=== PATIENT | male | born 1950 | race Two or more races ===

== ENCOUNTER 2019-12-22 02:42 | Inpatient (IN) | payer OTHER ==
[~2019-12-22] VITALS: Ht 172.7 cm; Wt 84.9 kg
[2019-12-22 04:11] LABS: Basophils # (auto) 0.1 10 ^3/uL (0-0.2); Basophils % (auto) 0.9 % (0.0-2.0); Eosinophils # (auto) 0.1 10 ^3/uL (0-0.8); Eosinophils % (auto) 0.7 % (0.0-7.0); Hematocrit 30.3 % (36.0-46.0); Hemoglobin 10.2 g/dL (12.2-16.2); Lymphocytes # (auto) 1.4 10 ^3/uL (0.4-5.4); Lymphocytes % (auto) 14.6 % (10.0-50.0); Mean Corpuscular Hgb Conc. 33.6 g/dL (32.0-36.0); Mean Corpuscular Volume 98.3 fL (80.0-100.0); Monocytes # (auto) 0.9 10 ^3/uL (0-1.3); Monocytes % (auto) 9.2 % (0.0-12.0); Neutrophils # (auto) 7.2 10 ^3/uL (1.6-8.6); Neutrophils % (auto) 74.6 % (37.0-80.0); Nucleated Red Blood Cells % 0.1 %; Platelet Count (auto) 221 10^3/uL (140-450); Red Blood Cells 3.08 10^6/uL (4.0-5.20); Red Cell Distribution Width 15.4 % (11.8-14.3); White Blood Cell 9.7 10^3/uL (4.4-10.8)
[2019-12-22] MEDS ORDERED: FUROSEMIDE 20 MG TAB PO ONE (04:30)
[2019-12-22 04:33] LABS: Albumin 2.4 g/dL (3.4-5.0); Calcium 8.7 mg/dL (8.5-10.1); Potassium 3.7 mmol/L (3.5-5.1)
[2019-12-22 04:38] LABS: BUN/Creatinine Ratio 4.5; Bilirubin, Total 0.5 mg/dL (0.2-1.0); Total Protein 7.8 g/dL (6.4-8.2)
[2019-12-22 05:03] LABS: INR 1.13 (0.9-1.15); Partial Thromboplastin Time 22.2 sec (23.0-31.2)
[2019-12-22] MEDS ORDERED: MORPHINE SULFATE 4 MG/ML SYR/VIAL ONE (05:24)
[2019-12-22] MEDS ORDERED: ONDANSETRON HCL 4 MG/2 ML VIAL ONE (05:24)
[2019-12-22] MEDS ORDERED: MORPHINE SULFATE 4 MG/ML SYR/VIAL IM ONE (05:30)
[2019-12-22] MEDS ORDERED: ONDANSETRON HCL 4 MG/2 ML VIAL IM ONE (05:30)
[2019-12-22] MEDS ORDERED: IPRATROPIUM BROM 0.5 MG/2.5ML INH SOL NEB ONE (05:45)
[2019-12-22] MEDS ORDERED: ALBUTEROL SULF 2.5 MG/0.5ML(0.5%) NEB SOLN NEB ONE (05:45)
[2019-12-22] MEDS ORDERED: IOHEXOL 350 MG/ML 100ML IJ ONE (06:05)
[2019-12-22] MEDS ORDERED: ACETAMINOPHEN 325 MG TAB PO PRN (06:45)
[2019-12-22] MEDS ORDERED: DOCUSATE SOD 100 MG CAP PO PRN (06:45)
[2019-12-22] MEDS ORDERED: IPRATROPIUM BROM 0.5 MG/2.5ML INH SOL NEB PRN (06:45)
[2019-12-22] MEDS ORDERED: ALBUTEROL SULF 2.5 MG/0.5ML(0.5%) NEB SOLN NEB PRN (06:45)
[2019-12-22] MEDS ORDERED: MORPHINE SULF INJ 2 MG/ML SYRINGE 1ML IV PRN (06:45)
[2019-12-22] MEDS ORDERED: HYDROcodone-ACET 5/325MG TAB PO PRN (06:45)
[2019-12-22] MEDS ORDERED: ONDANSETRON HCL 4 MG/2 ML VIAL IV PRN (06:45)
[2019-12-22 10:10] VITALS: BP 144/83
[2019-12-22] MEDS ORDERED: DOCU100T15 PO (10:51)
[2019-12-22] MEDS ORDERED: LISI-275 PO (10:51)
[2019-12-22] MEDS ORDERED: FERR1TAB17 PO (10:51)
[2019-12-22] MEDS ORDERED: LEVO25TA6 PO (10:51)
[2019-12-22] MEDS ORDERED: CALC667T2 PO (10:51)
[2019-12-22] MEDS ORDERED: TERA2CAP45 PO (10:51)
[2019-12-22] MEDS ORDERED: ATEN-60 PO (10:51)
[2019-12-22] MEDS ORDERED: SODI650T PO (10:51)
[2019-12-22] MEDS ORDERED: ALLO300T2 PO (10:51)
[2019-12-22] MEDS ORDERED: CINA30TA2 PO (10:51)
[2019-12-22] MEDS ORDERED: RIZA5TAB35 PO (10:51)
[2019-12-22] MEDS ORDERED: ALBUAER3 IN (10:51)
[2019-12-22] MEDS ORDERED: B-COTAB10 PO (10:51)
[2019-12-22] MEDS ORDERED: BUMETANIDE 2.5mg/10ml (0.25 mg/ml) INJ IV ONE (12:30)
[2019-12-22 13:00] VITALS: BP 138/89
[2019-12-22 16:30] VITALS: BP 133/78
[2019-12-22 22:00] VITALS: BP 100/49
[2019-12-23 05:00] VITALS: BP 129/72
[2019-12-23 08:00] VITALS: BP 126/72
[2019-12-23 09:00] VITALS: BP 126/72
[2019-12-23 12:12] VITALS: BP 120/71
[2019-12-23 12:37] VITALS: BP 118/65
== END 2019-12-23 13:50 | disposition home or self-care (01) | DRG 189 ==
LOC: EDBD 02:42 → EDSEX 02:46 → ER 02:46 → TELE 02:47 → TELE-WESTW 11:52
PROVIDERS: ADMIT Hospitalist; ATTEND Internal Medicine Pulmonary Disease
PROC: 5A1D70Z Performance of Urinary Filtration, Intermittent, Less than 6 Hours Per Day (ICD-10-PCS; principal; 2019-12-22)
PROC: 5A09357 Assistance with Respiratory Ventilation, Less than 24 Consecutive Hours, Continuous Positive Airway Pressure (ICD-10-PCS; 2019-12-22)
DX: J96.00 Acute respiratory failure, unspecified whether with hypoxia or hypercapnia (principal); N18.6 End stage renal disease; J81.1 Chronic pulmonary edema; I12.0 Hypertensive chronic kidney disease with stage 5 chronic kidney disease or end stage renal disease; J45.909 Unspecified asthma, uncomplicated; E87.70 Fluid overload, unspecified; Z99.2 Dependence on renal dialysis; Z93.3 Colostomy status; Z91.11 Patient's noncompliance with dietary regimen
CPT/HCPCS: 36415; 36600; 71045; 71275; 74176; 80053; 82805; 83605; 83880; 84484; 85025; 85379; 85610; 85730; 87040; 90935; 93005; 94640; 94660; 96372; 96374; G0378; J2405

== ENCOUNTER 2021-05-09 09:16 | Inpatient (IN) | payer OTHER ==
[~2021-05-09] VITALS: Ht 182.9 cm; Wt 90.1 kg
[~2021-05-09 09:16] MED LIST: ALBUAER3 IN; ALLO300T2 PO; ATEN-60 PO; B-COTAB10 PO; CALC10TA PO; CINA30TA2 PO; DOCU100T15 PO; FERR1TAB17 PO; LEVO25TA6 PO; LISI-275 PO; RIZA5TAB35 PO; SODI650T PO; TERA2CAP45 PO
[2021-05-09] MEDS ORDERED: SODIUM CHLORIDE 0.9% 500 ML IV ONE (10:30)
[2021-05-09] MEDS ORDERED: ACETAMINOPHEN 325 MG TAB PO ONE (10:30)
[2021-05-09] MEDS ORDERED: VANCOMYCIN PER PHARMACY 0 MG IV SCH (10:30)
[2021-05-09] MEDS ORDERED: PHENYLEPHRINE IV 250 ML IV ONE (10:38)
[2021-05-09] MEDS: PHENYLEPHRINE IV 250 ML IV SCH ×2 (10:52→13:35)
[2021-05-09] MEDS ORDERED: VANCOMYCIN 1GM/250ML 250 ML IV ONE (11:00)
[2021-05-09 11:14] LABS: Basophils # (auto) 0 10 ^3/uL (0-0.2); Basophils % (auto) 0.2 % (0.0-2.0); Eosinophils # (auto) 0 10 ^3/uL (0-0.8); Eosinophils % (auto) 0.1 % (0.0-7.0); Hematocrit 30.9 % (41.0-53.0); Hemoglobin 10.5 g/dL (13.5-17.5); Lymphocytes # (auto) 0.3 10 ^3/uL (0.4-5.4); Lymphocytes % (auto) 4.4 % (10.0-50.0); Mean Corpuscular Hemoglobin 33.4 pg (28.0-32.0); Mean Corpuscular Hgb Conc. 33.8 g/dL (32.0-36.0); Mean Corpuscular Volume 98.8 fL (80.0-100.0); Monocytes # (auto) 0.3 10 ^3/uL (0-1.3); Monocytes % (auto) 4.3 % (0.0-12.0); Neutrophils # (auto) 6.5 10 ^3/uL (1.6-8.6); Nucleated Red Blood Cells % 0.1 %; Red Blood Cells 3.13 10^6/uL (4.5-5.90); Red Cell Distribution Width 14.5 % (11.8-14.3); White Blood Cell 7.2 10^3/uL (4.4-10.8)
[2021-05-09 11:28] LABS: Albumin 2.3 g/dL (3.4-5.0); Anion Gap 13 (5-15); Blood Urea Nitrogen 79 mg/dL (7-18); Calcium 9.6 mg/dL (8.5-10.1); Carbon Dioxide 26 mmol/L (21-32); Chloride 92 mmol/L (98-107); Glucose 102 mg/dL (74-106); Potassium 4.6 mmol/L (3.5-5.1); Sodium 131 mmol/L (136-145)
[2021-05-09 11:35] LABS: Alanine Aminotransferase 74 U/L (16-61); Alkaline Phosphatase 235 U/L (45-117); Aspartate Aminotransferase 60 U/L (15-37); BUN/Creatinine Ratio 7.7; Bilirubin, Total 0.8 mg/dL (0.2-1.0); Blood Alcohol < 3.0 mg/dL (0-5); GFR African American 6 mL/min; GFR Non-African American 5 mL/min; Total Protein 8.2 g/dL (6.4-8.2)
[2021-05-09] MEDS ORDERED: NOREPINEPHRINE 8 MG/250ML KIT 250 ML IV ONE (13:24)
[2021-05-09] MEDS: NOREPINEPHRINE 8 MG/250ML KIT 250 ML IV SCH (13:43)
[2021-05-09] MEDS ORDERED: MORPHINE SULFATE INJECTION 2 MG/ML SYRG IV PRN (16:30)
[2021-05-09] MEDS ORDERED: NITROGLYCERIN 0.4 MG SL TAB SL PRN (16:30)
[2021-05-09] MEDS ORDERED: VANCOMYCIN HCL 125MG/5ML ORAL SOL GT ONE (19:15)
[2021-05-09] MEDS ORDERED: BUMETANIDE 2.5mg/10ml (0.25 mg/ml) INJ IV ONE (19:15)
[2021-05-09] MEDS ORDERED: hydrALAZINE HCL 20 MG/ML VL IV PRN (19:15)
[2021-05-09] MEDS ORDERED: B-COMPLEX W/ C & FOLIC ACID(NEPHROVITE TAB) PO ONE (19:15)
[2021-05-09] MEDS ORDERED: FAMOTIDINE (10MG/ML) 2ML VL IV ONE (19:15)
[2021-05-09] MEDS ORDERED: HYDROcodone-ACET 5/325MG TAB PO ONE (19:15)
[2021-05-09] MEDS ORDERED: CEFEPIME 1 GM in SODIUM CHL 0.9% 50 ML IV ONE (19:15)
[2021-05-09] MEDS ORDERED: IPRATROPIUM BROM 0.5 MG/2.5ML INH SOL NEB ONE (19:45)
[2021-05-09] MEDS: IPRATROPIUM BROM 0.5 MG/2.5ML INH SOL NEB SCH ×2 (20:30→21:59)
[2021-05-09 21:56] LABS: INR 1.34 (0.9-1.15); Partial Thromboplastin Time 32.2 sec (23.6-33.0)
[2021-05-09] MEDS: CARVEDILOL 3.125 MG TAB PO SCH (23:11)
[2021-05-09] MEDS: FLORASTOR (S. BOULARDII) 250 MG CAP PO SCH (23:14)
[2021-05-09] MEDS: ATORVASTATIN 20 MG TAB PO SCH (23:14)
[2021-05-10] MEDS: VANCOMYCIN HCL 125MG/5ML ORAL SOL GT SCH ×2 (00:19→06:11)
[2021-05-10] MEDS: IPRATROPIUM BROM 0.5 MG/2.5ML INH SOL NEB SCH ×7 (02:00→22:33)
[2021-05-10] MEDS: ONDANSETRON HCL 4 MG/2 ML VIAL IV PRN (03:22)
[2021-05-10] MEDS: MORPHINE SULFATE INJECTION 2 MG/ML SYRG IV PRN ×2 (03:53→15:59)
[2021-05-10] MEDS: PHENYLEPHRINE IV 250 ML IV SCH ×2 (04:15→14:30)
[2021-05-10] MEDS ORDERED: BUMETANIDE 2.5mg/10ml (0.25 mg/ml) INJ IV SCH (06:00)
[2021-05-10 07:53] LABS: Basophils # (auto) 0.1 10 ^3/uL (0-0.2); Basophils % (auto) 1.2 % (0.0-2.0); Eosinophils # (auto) 0.1 10 ^3/uL (0-0.8); Eosinophils % (auto) 0.6 % (0.0-7.0); Hematocrit 24.4 % (41.0-53.0); Hemoglobin 8.2 g/dL (13.5-17.5); Lymphocytes # (auto) 0.5 10 ^3/uL (0.4-5.4); Lymphocytes % (auto) 4.1 % (10.0-50.0); Mean Corpuscular Hemoglobin 32.8 pg (28.0-32.0); Mean Corpuscular Hgb Conc. 33.4 g/dL (32.0-36.0); Mean Corpuscular Volume 98.1 fL (80.0-100.0); Monocytes # (auto) 0.9 10 ^3/uL (0-1.3); Monocytes % (auto) 7.4 % (0.0-12.0); Neutrophils # (auto) 10.8 10 ^3/uL (1.6-8.6); Neutrophils % (auto) 86.7 % (37.0-80.0); Red Blood Cells 2.49 10^6/uL (4.5-5.90); Red Cell Distribution Width 14.5 % (11.8-14.3); White Blood Cell 12.4 10^3/uL (4.4-10.8)
[2021-05-10] MEDS ORDERED: FERRIC CITRATE 420 MG PO SCH (08:00)
[2021-05-10 08:07] LABS: INR 1.35 (0.9-1.15)
[2021-05-10 08:11] LABS: Phosphorus 4.7 mg/dL (2.5-4.90)
[2021-05-10] MEDS ORDERED: SODIUM CHL 0.9% 1000 ML BAG XX ONE (08:45)
[2021-05-10] MEDS: HYDROcodone-ACET 5/325MG TAB PO PRN (08:49)
[2021-05-10] MEDS: CALCIUM ACETATE 667 MG CAP PO SCH ×2 (09:07→13:19)
[2021-05-10] MEDS: LEVOTHYROXINE SODIUM 25 MCG TAB PO SCH (09:07)
[2021-05-10] MEDS ORDERED: CEFEPIME 1 GM in SODIUM CHL 0.9% 50 ML IV SCH (10:00)
[2021-05-10] MEDS ORDERED: CALCITRIOL 0.25 MCG CAP PO SCH (10:00)
[2021-05-10] MEDS: CINACALCET HYDROCHLORIDE 30 MG TAB PO SCH ×2 (10:00→13:19)
[2021-05-10] MEDS: B-COMPLEX W/ C & FOLIC ACID(NEPHROVITE TAB) PO SCH (10:25)
[2021-05-10] MEDS: FAMOTIDINE (10MG/ML) 2ML VL IV SCH (10:25)
[2021-05-10] MEDS: FLORASTOR (S. BOULARDII) 250 MG CAP PO SCH ×2 (10:27→22:00)
[2021-05-10] MEDS: ENOXAPARIN SOD 30 MG/0.3 ML SYRINGE SC SCH (10:42)
[2021-05-10] MEDS: CARVEDILOL 3.125 MG TAB PO SCH (10:42)
[2021-05-10] MEDS: ALLOPURINOL 100 MG TAB PO SCH (10:43)
[2021-05-10] MEDS: NOREPINEPHRINE 8 MG/250ML KIT 250 ML IV SCH (12:59)
[2021-05-10] MEDS: CEFEPIME 1 GM in SODIUM CHL 0.9% 50 ML IV SCH (15:38)
[2021-05-10] MEDS ORDERED: ALLO100T PO (17:00)
[2021-05-10] MEDS ORDERED: CARV3.1240 PO (17:07)
[2021-05-10] MEDS ORDERED: EPOETIN ALFA-EPBX 4,000 UNIT/ML VIAL SC ONE (21:00)
[2021-05-10 22:00] VITALS: BP 101/61
[2021-05-10] MEDS: ATORVASTATIN 20 MG TAB PO SCH (22:00)
[2021-05-11] MEDS: IPRATROPIUM BROM 0.5 MG/2.5ML INH SOL NEB SCH ×3 (01:33→10:54)
[2021-05-11 05:00] VITALS: BP 122/72
[2021-05-11] MEDS: LEVOTHYROXINE SODIUM 25 MCG TAB PO SCH (07:00)
[2021-05-11 07:57] LABS: Basophils # (auto) 0.1 10 ^3/uL (0-0.2); Basophils % (auto) 0.9 % (0.0-2.0); Eosinophils # (auto) 0.1 10 ^3/uL (0-0.8); Eosinophils % (auto) 1.1 % (0.0-7.0); Hematocrit 24.7 % (41.0-53.0); Hemoglobin 8.4 g/dL (13.5-17.5); Lymphocytes # (auto) 0.6 10 ^3/uL (0.4-5.4); Lymphocytes % (auto) 8.1 % (10.0-50.0); Mean Corpuscular Hemoglobin 33.2 pg (28.0-32.0); Mean Corpuscular Volume 97.6 fL (80.0-100.0); Monocytes # (auto) 0.4 10 ^3/uL (0-1.3); Monocytes % (auto) 5.3 % (0.0-12.0); Neutrophils # (auto) 5.7 10 ^3/uL (1.6-8.6); Neutrophils % (auto) 84.6 % (37.0-80.0); Red Blood Cells 2.53 10^6/uL (4.5-5.90); Red Cell Distribution Width 14.6 % (11.8-14.3); White Blood Cell 6.8 10^3/uL (4.4-10.8)
[2021-05-11 08:25] LABS: BUN/Creatinine Ratio 7.8; Calcium 8.8 mg/dL (8.5-10.1); Potassium 4.4 mmol/L (3.5-5.1)
[2021-05-11] MEDS: FLORASTOR (S. BOULARDII) 250 MG CAP PO SCH ×2 (08:47→22:06)
[2021-05-11] MEDS: CALCIUM ACETATE 667 MG CAP PO SCH ×3 (08:47→17:53)
[2021-05-11] MEDS: B-COMPLEX W/ C & FOLIC ACID(NEPHROVITE TAB) PO SCH (08:48)
[2021-05-11] MEDS: ENOXAPARIN SOD 30 MG/0.3 ML SYRINGE SC SCH (08:48)
[2021-05-11] MEDS: ALLOPURINOL 100 MG TAB PO SCH (08:48)
[2021-05-11] MEDS: HYDROcodone-ACET 5/325MG TAB PO PRN (08:55)
[2021-05-11] MEDS: CINACALCET HYDROCHLORIDE 30 MG TAB PO SCH (09:38)
[2021-05-11 13:00] VITALS: BP 100/65
[2021-05-11] MEDS: CEFEPIME 1 GM in SODIUM CHL 0.9% 50 ML IV SCH (13:13)
[2021-05-11] MEDS: DOCUSATE SOD 100 MG CAP PO PRN (15:49)
[2021-05-11 16:27] VITALS: BP 115/68
[2021-05-11] MEDS ORDERED: CALC10TA PO ×2 (17:00→17:07)
[2021-05-11] MEDS ORDERED: ALBUAER3 IN (17:00)
[2021-05-11] MEDS ORDERED: LISI-275 PO (17:00)
[2021-05-11 22:00] VITALS: BP 113/68
[2021-05-11] MEDS: ATORVASTATIN 20 MG TAB PO SCH (22:07)
[2021-05-12] MEDS: LORazepam 0.5 MG TAB PO PRN ×2 (00:53→10:59)
[2021-05-12] MEDS ORDERED: VANCOMYCIN PER PHARMACY 0 MG IV SCH (03:45)
[2021-05-12 05:00] VITALS: BP 121/75
[2021-05-12] MEDS: LEVOTHYROXINE SODIUM 25 MCG TAB PO SCH (07:00)
[2021-05-12] MEDS ORDERED: VANCOMYCIN 1GM/250ML 250 ML IV ONE (08:00)
[2021-05-12] MEDS: CALCIUM ACETATE 667 MG CAP PO SCH ×3 (08:12→18:40)
[2021-05-12 09:00] VITALS: BP 116/74
[2021-05-12] MEDS: FLORASTOR (S. BOULARDII) 250 MG CAP PO SCH ×2 (09:04→22:00)
[2021-05-12] MEDS: FAMOTIDINE (10MG/ML) 2ML VL IV SCH (09:04)
[2021-05-12] MEDS: ENOXAPARIN SOD 30 MG/0.3 ML SYRINGE SC SCH (09:05)
[2021-05-12] MEDS: B-COMPLEX W/ C & FOLIC ACID(NEPHROVITE TAB) PO SCH (09:05)
[2021-05-12] MEDS: CINACALCET HYDROCHLORIDE 30 MG TAB PO SCH (09:05)
[2021-05-12] MEDS: ALLOPURINOL 100 MG TAB PO SCH (09:05)
[2021-05-12] MEDS ORDERED: NYSTATIN (MOUTH-THROAT) 500,000 UNITS/5 ML SUSP MT ONE (12:30)
[2021-05-12 13:00] VITALS: BP 123/76
[2021-05-12] MEDS ORDERED: ONDANSETRON HCL 4 MG/2 ML VIAL ONE (13:09)
[2021-05-12] MEDS: CEFEPIME 1 GM in SODIUM CHL 0.9% 50 ML IV SCH (13:31)
[2021-05-12] MEDS: ONDANSETRON HCL 4 MG/2 ML VIAL IV PRN (13:36)
[2021-05-12 17:00] VITALS: BP 124/87
[2021-05-12] MEDS: NYSTATIN (MOUTH-THROAT) 500,000 UNITS/5 ML SUSP MT SCH ×2 (18:40→22:00)
[2021-05-12 22:00] VITALS: BP 105/64
[2021-05-12] MEDS: ATORVASTATIN 20 MG TAB PO SCH (22:00)
[2021-05-13] MEDS: MORPHINE SULFATE INJECTION 2 MG/ML SYRG IV PRN (00:24)
[2021-05-13 05:00] VITALS: BP 132/83
[2021-05-13] MEDS: NYSTATIN (MOUTH-THROAT) 500,000 UNITS/5 ML SUSP MT SCH ×4 (06:00→22:28)
[2021-05-13] MEDS: LEVOTHYROXINE SODIUM 25 MCG TAB PO SCH (06:50)
[2021-05-13 07:23] LABS: Basophils # (auto) 0.1 10 ^3/uL (0-0.2); Basophils % (auto) 1.2 % (0.0-2.0); Eosinophils # (auto) 0 10 ^3/uL (0-0.8); Eosinophils % (auto) 0.4 % (0.0-7.0); Hematocrit 25.9 % (41.0-53.0); Hemoglobin 8.7 g/dL (13.5-17.5); Lymphocytes # (auto) 1.3 10 ^3/uL (0.4-5.4); Lymphocytes % (auto) 11.2 % (10.0-50.0); Mean Corpuscular Hemoglobin 33.4 pg (28.0-32.0); Mean Corpuscular Hgb Conc. 33.4 g/dL (32.0-36.0); Mean Corpuscular Volume 100.1 fL (80.0-100.0); Monocytes # (auto) 1.3 10 ^3/uL (0-1.3); Monocytes % (auto) 11.3 % (0.0-12.0); Neutrophils % (auto) 75.9 % (37.0-80.0); Nucleated Red Blood Cells % 0.1 %; Red Blood Cells 2.59 10^6/uL (4.5-5.90); Red Cell Distribution Width 14.3 % (11.8-14.3); White Blood Cell 11.8 10^3/uL (4.4-10.8)
[2021-05-13] MEDS: CALCIUM ACETATE 667 MG CAP PO SCH ×3 (08:00→17:57)
[2021-05-13 08:35] LABS: INR 1.18 (0.9-1.15)
[2021-05-13 08:36] LABS: Partial Thromboplastin Time 24.3 sec (23.6-33.0)
[2021-05-13 09:00] VITALS: BP 129/79
[2021-05-13] MEDS: CINACALCET HYDROCHLORIDE 30 MG TAB PO SCH (09:24)
[2021-05-13] MEDS: ALLOPURINOL 100 MG TAB PO SCH (09:43)
[2021-05-13] MEDS: FLORASTOR (S. BOULARDII) 250 MG CAP PO SCH ×2 (09:43→22:00)
[2021-05-13] MEDS: B-COMPLEX W/ C & FOLIC ACID(NEPHROVITE TAB) PO SCH (09:43)
[2021-05-13] MEDS: ENOXAPARIN SOD 30 MG/0.3 ML SYRINGE SC SCH (10:00)
[2021-05-13 10:33] LABS: BUN/Creatinine Ratio 6.7; Calcium 9.2 mg/dL (8.5-10.1); Potassium 3.3 mmol/L (3.5-5.1)
[2021-05-13] MEDS ORDERED: ERTAPENEM SOD INJ 0.5 GM in SODIUM CHL 0.9% 50 ML IV ONE (10:45)
[2021-05-13] MEDS ORDERED: fentaNYL CITRATE 100 MCG/2 ML VL IV ONE (11:30)
[2021-05-13] MEDS ORDERED: diphenhdrAMINE HCL 50 MG/1 ML VL IV ONE (11:30)
[2021-05-13] MEDS ORDERED: LIDOCAINE VISCOUS 2% 15ML UD PO ONE (11:30)
[2021-05-13] MEDS ORDERED: MIDAZOLAM HCL 2MG/2ML 2ml VIAL (1mg/ml) IV ONE (11:30)
[2021-05-13] MEDS ORDERED: fentaNYL CITRATE 100 MCG/2 ML VL ONE (12:02)
[2021-05-13 13:00] VITALS: BP 96/47
[2021-05-13 16:56] VITALS: BP 110/69
[2021-05-13] MEDS: HYDROcodone-ACET 5/325MG TAB PO PRN (17:57)
[2021-05-13] MEDS: guaiFENesin-DM 100/10mg/5ml SYR PO PRN (18:23)
[2021-05-13] MEDS: ATORVASTATIN 20 MG TAB PO SCH (22:29)
[2021-05-14] VITALS (7 sets, daily range): BP systolic 101–119; BP diastolic 56–76
[2021-05-14] MEDS: HYDROcodone-ACET 5/325MG TAB PO PRN ×3 (01:19→22:58)
[2021-05-14] MEDS: guaiFENesin-DM 100/10mg/5ml SYR PO PRN ×2 (01:33→14:36)
[2021-05-14] MEDS: LORazepam 0.5 MG TAB PO PRN (03:35)
[2021-05-14 06:13] LABS: Basophils # (auto) 0.1 10 ^3/uL (0-0.2); Eosinophils # (auto) 0.1 10 ^3/uL (0-0.8); Hemoglobin 8.4 g/dL (13.5-17.5); Lymphocytes # (auto) 1.2 10 ^3/uL (0.4-5.4); Neutrophils # (auto) 7.2 10 ^3/uL (1.6-8.6); White Blood Cell 9.5 10^3/uL (4.4-10.8)
[2021-05-14 06:15] LABS: Basophils % (auto) 0.8 % (0.0-2.0); Eosinophils % (auto) 0.8 % (0.0-7.0); Hematocrit 24.9 % (41.0-53.0); Lymphocytes % (auto) 12.1 % (10.0-50.0); Mean Corpuscular Hemoglobin 33.5 pg (28.0-32.0); Mean Corpuscular Hgb Conc. 33.6 g/dL (32.0-36.0); Mean Corpuscular Volume 99.5 fL (80.0-100.0); Monocytes % (auto) 10.7 % (0.0-12.0); Neutrophils % (auto) 75.6 % (37.0-80.0); Nucleated Red Blood Cells % 0.1 %; Red Blood Cells 2.51 10^6/uL (4.5-5.90); Red Cell Distribution Width 14.2 % (11.8-14.3)
[2021-05-14] MEDS: NYSTATIN (MOUTH-THROAT) 500,000 UNITS/5 ML SUSP MT SCH ×4 (06:20→21:40)
[2021-05-14 06:26] LABS: BUN/Creatinine Ratio 6.7; Calcium 9.2 mg/dL (8.5-10.1); Potassium 4.5 mmol/L (3.5-5.1)
[2021-05-14] MEDS: LEVOTHYROXINE SODIUM 25 MCG TAB PO SCH (08:13)
[2021-05-14] MEDS: CALCIUM ACETATE 667 MG CAP PO SCH ×3 (08:13→17:42)
[2021-05-14] MEDS: DOCUSATE SOD 100 MG CAP PO PRN (09:30)
[2021-05-14] MEDS: B-COMPLEX W/ C & FOLIC ACID(NEPHROVITE TAB) PO SCH (10:01)
[2021-05-14] MEDS: FAMOTIDINE (10MG/ML) 2ML VL IV SCH (10:01)
[2021-05-14] MEDS: FLORASTOR (S. BOULARDII) 250 MG CAP PO SCH ×2 (10:01→21:41)
[2021-05-14] MEDS: CINACALCET HYDROCHLORIDE 30 MG TAB PO SCH (10:02)
[2021-05-14] MEDS: ENOXAPARIN SOD 30 MG/0.3 ML SYRINGE SC SCH (10:02)
[2021-05-14] MEDS: ALLOPURINOL 100 MG TAB PO SCH (10:02)
[2021-05-14] MEDS: ERTAPENEM SOD INJ 0.5 GM in SODIUM CHL 0.9% 50 ML IV SCH (13:00)
[2021-05-14] MEDS ORDERED: ERTAPENEM SOD INJ 0.5 GM in SODIUM CHL 0.9% 50 ML IV SCH (15:00)
[2021-05-14] MEDS ORDERED: metroNIDAZOLE 500 MG TAB PO ONE (16:45)
[2021-05-14] MEDS: ATORVASTATIN 20 MG TAB PO SCH (21:41)
[2021-05-14] MEDS: metroNIDAZOLE 500 MG TAB PO SCH (21:41)
[2021-05-15 05:00] VITALS: BP 115/74
[2021-05-15] MEDS: NYSTATIN (MOUTH-THROAT) 500,000 UNITS/5 ML SUSP MT SCH ×4 (06:15→21:34)
[2021-05-15] MEDS: metroNIDAZOLE 500 MG TAB PO SCH ×3 (06:15→21:34)
[2021-05-15] MEDS: LEVOTHYROXINE SODIUM 25 MCG TAB PO SCH (07:00)
[2021-05-15 08:00] VITALS: BP 114/77
[2021-05-15] MEDS: CALCIUM ACETATE 667 MG CAP PO SCH ×3 (08:08→17:40)
[2021-05-15 09:00] VITALS: BP 114/77
[2021-05-15] MEDS: B-COMPLEX W/ C & FOLIC ACID(NEPHROVITE TAB) PO SCH (09:10)
[2021-05-15] MEDS: ALLOPURINOL 100 MG TAB PO SCH (09:10)
[2021-05-15] MEDS: FLORASTOR (S. BOULARDII) 250 MG CAP PO SCH ×2 (09:10→21:34)
[2021-05-15] MEDS: CINACALCET HYDROCHLORIDE 30 MG TAB PO SCH (09:10)
[2021-05-15] MEDS: ENOXAPARIN SOD 30 MG/0.3 ML SYRINGE SC SCH (09:11)
[2021-05-15] MEDS: HYDROcodone-ACET 5/325MG TAB PO PRN ×2 (09:15→20:33)
[2021-05-15] MEDS: DOCUSATE SOD 100 MG CAP PO PRN (10:12)
[2021-05-15] MEDS: ERTAPENEM SOD INJ 0.5 GM in SODIUM CHL 0.9% 50 ML IV SCH (12:08)
[2021-05-15 13:00] VITALS: BP 118/79
[2021-05-15 17:00] VITALS: BP 107/71
[2021-05-15] MEDS: LORazepam 0.5 MG TAB PO PRN (21:35)
[2021-05-15] MEDS: ATORVASTATIN 20 MG TAB PO SCH (21:35)
[2021-05-15 22:00] VITALS: BP 109/68
[2021-05-16] MEDS: metroNIDAZOLE 500 MG TAB PO SCH ×4 (00:10→18:06)
[2021-05-16] MEDS: MORPHINE SULFATE INJECTION 2 MG/ML SYRG IV PRN (00:38)
[2021-05-16 04:43] VITALS: BP 113/74
[2021-05-16 05:33] LABS: Basophils # (auto) 0.1 10 ^3/uL (0-0.2); Eosinophils # (auto) 0.2 10 ^3/uL (0-0.8); Hemoglobin 8.4 g/dL (13.5-17.5); Neutrophils # (auto) 8.5 10 ^3/uL (1.6-8.6); White Blood Cell 10.6 10^3/uL (4.4-10.8)
[2021-05-16] MEDS: NYSTATIN (MOUTH-THROAT) 500,000 UNITS/5 ML SUSP MT SCH ×4 (05:36→21:54)
[2021-05-16 05:37] LABS: Basophils % (auto) 0.8 % (0.0-2.0); Eosinophils % (auto) 1.8 % (0.0-7.0); Hematocrit 24.4 % (41.0-53.0); Lymphocytes % (auto) 9.8 % (10.0-50.0); Mean Corpuscular Hemoglobin 33.9 pg (28.0-32.0); Mean Corpuscular Hgb Conc. 34.3 g/dL (32.0-36.0); Monocytes # (auto) 0.7 10 ^3/uL (0-1.3); Monocytes % (auto) 6.8 % (0.0-12.0); Neutrophils % (auto) 80.8 % (37.0-80.0); Red Blood Cells 2.47 10^6/uL (4.5-5.90); Red Cell Distribution Width 14.7 % (11.8-14.3)
[2021-05-16] MEDS: LEVOTHYROXINE SODIUM 25 MCG TAB PO SCH (06:38)
[2021-05-16] MEDS: DOCUSATE SOD 100 MG CAP PO PRN ×2 (06:55→14:24)
[2021-05-16] MEDS ORDERED: SODIUM CHL 0.9% 1000 ML BAG XX ONE (07:00)
[2021-05-16 08:00] VITALS: BP 98/70
[2021-05-16] MEDS: CALCIUM ACETATE 667 MG CAP PO SCH ×3 (08:00→18:06)
[2021-05-16] MEDS: ONDANSETRON HCL 4 MG/2 ML VIAL IV PRN (08:17)
[2021-05-16 08:42] VITALS: BP 98/70
[2021-05-16] MEDS: CINACALCET HYDROCHLORIDE 30 MG TAB PO SCH (10:08)
[2021-05-16] MEDS: ENOXAPARIN SOD 30 MG/0.3 ML SYRINGE SC SCH (10:08)
[2021-05-16] MEDS: ALLOPURINOL 100 MG TAB PO SCH (10:08)
[2021-05-16] MEDS: FAMOTIDINE (10MG/ML) 2ML VL IV SCH (10:08)
[2021-05-16] MEDS: FLORASTOR (S. BOULARDII) 250 MG CAP PO SCH ×2 (10:08→21:55)
[2021-05-16] MEDS: B-COMPLEX W/ C & FOLIC ACID(NEPHROVITE TAB) PO SCH (10:08)
[2021-05-16] MEDS: ERTAPENEM SOD INJ 0.5 GM in SODIUM CHL 0.9% 50 ML IV SCH (12:04)
[2021-05-16] MEDS: guaiFENesin-DM 100/10mg/5ml SYR PO PRN (12:11)
[2021-05-16 13:00] VITALS: BP 110/72
[2021-05-16] MEDS: HYDROcodone-ACET 5/325MG TAB PO PRN ×2 (13:15→22:05)
[2021-05-16] MEDS ORDERED: LACTULOSE 20Gm/30ML SOLN PO ONE (15:00)
[2021-05-16 17:00] VITALS: BP 110/55
[2021-05-16 17:17] LABS: INR 1.27 (0.9-1.15)
[2021-05-16] MEDS ORDERED: EPOETIN ALFA-EPBX 4,000 UNIT/ML VIAL SC ONE (21:00)
[2021-05-16] MEDS: ATORVASTATIN 20 MG TAB PO SCH (21:56)
[2021-05-16 22:00] VITALS: BP 109/59
[2021-05-16] MEDS: LORazepam 0.5 MG TAB PO PRN ×2 (22:17→22:18)
[2021-05-17] MEDS: metroNIDAZOLE 500 MG TAB PO SCH ×4 (00:04→18:00)
[2021-05-17] MEDS: HYDROcodone-ACET 5/325MG TAB PO PRN ×2 (04:55→06:56)
[2021-05-17 05:00] VITALS: BP 123/79
[2021-05-17] MEDS: LEVOTHYROXINE SODIUM 25 MCG TAB PO SCH (06:56)
[2021-05-17] MEDS: NYSTATIN (MOUTH-THROAT) 500,000 UNITS/5 ML SUSP MT SCH ×4 (07:01→22:24)
[2021-05-17 08:00] VITALS: BP 131/79
[2021-05-17] MEDS: CALCIUM ACETATE 667 MG CAP PO SCH ×3 (08:00→18:00)
[2021-05-17] MEDS: FLORASTOR (S. BOULARDII) 250 MG CAP PO SCH ×2 (10:00→22:25)
[2021-05-17] MEDS: ENOXAPARIN SOD 30 MG/0.3 ML SYRINGE SC SCH (10:00)
[2021-05-17] MEDS ORDERED: FAMOTIDINE 20 MG TAB PO SCH (10:00)
[2021-05-17] MEDS: CINACALCET HYDROCHLORIDE 30 MG TAB PO SCH (10:00)
[2021-05-17] MEDS: B-COMPLEX W/ C & FOLIC ACID(NEPHROVITE TAB) PO SCH (10:00)
[2021-05-17] MEDS: ALLOPURINOL 100 MG TAB PO SCH (10:00)
[2021-05-17 12:00] VITALS: BP 141/90
[2021-05-17] MEDS: ERTAPENEM SOD INJ 0.5 GM in SODIUM CHL 0.9% 50 ML IV SCH (12:00)
[2021-05-17 16:00] VITALS: BP 128/81
[2021-05-17] MEDS: ATORVASTATIN 20 MG TAB PO SCH (22:27)
[2021-05-17] MEDS: LORazepam 0.5 MG TAB PO PRN (22:28)
[2021-05-17] MEDS: DOCUSATE SOD 100 MG CAP PO PRN (22:30)
[2021-05-18] MEDS: HYDROcodone-ACET 5/325MG TAB PO PRN (01:07)
[2021-05-18] MEDS: metroNIDAZOLE 500 MG TAB PO SCH ×3 (01:09→12:29)
[2021-05-18] MEDS ORDERED: SODIUM CHL 0.9% 1000 ML BAG XX ONE (07:00)
[2021-05-18] MEDS: NYSTATIN (MOUTH-THROAT) 500,000 UNITS/5 ML SUSP MT SCH ×2 (07:05→12:29)
[2021-05-18] MEDS: LEVOTHYROXINE SODIUM 25 MCG TAB PO SCH (07:06)
[2021-05-18 08:00] VITALS: BP 128/77
[2021-05-18] MEDS: CALCIUM ACETATE 667 MG CAP PO SCH ×2 (08:48→12:29)
[2021-05-18] MEDS: ALLOPURINOL 100 MG TAB PO SCH (08:49)
[2021-05-18] MEDS: B-COMPLEX W/ C & FOLIC ACID(NEPHROVITE TAB) PO SCH (08:49)
[2021-05-18] MEDS: ENOXAPARIN SOD 30 MG/0.3 ML SYRINGE SC SCH (08:52)
[2021-05-18] MEDS: CINACALCET HYDROCHLORIDE 30 MG TAB PO SCH (10:00)
[2021-05-18] MEDS: FLORASTOR (S. BOULARDII) 250 MG CAP PO SCH (10:00)
[2021-05-18] MEDS: ERTAPENEM SOD INJ 0.5 GM in SODIUM CHL 0.9% 50 ML IV SCH (12:29)
[2021-05-18 13:00] VITALS: BP 122/77
[2021-05-18 13:51] VITALS: BP 116/62
[2021-05-18 17:00] VITALS: BP 128/78
[2021-05-18] MEDS ORDERED: EPOETIN ALFA-EPBX 10,000 UNIT/1ML VIAL SC ONE (21:00)
== END 2021-05-18 18:55 | disposition short-term general hospital (02) | DRG 871 ==
LOC: EDBD 09:16 → ER 09:16 → TELE 16:23 → TELE-WESTW 05-10 21:00
PROVIDERS: ADMIT Hospitalist; ATTEND Internal Medicine
PROC: 5A1D70Z Performance of Urinary Filtration, Intermittent, Less than 6 Hours Per Day (ICD-10-PCS; 2021-05-11)
PROC: B246ZZ4 Ultrasonography of Right and Left Heart, Transesophageal (ICD-10-PCS; principal; 2021-05-13)
PROC: 5A1D70Z Performance of Urinary Filtration, Intermittent, Less than 6 Hours Per Day (ICD-10-PCS; 2021-05-13)
PROC: 05HB33Z Insertion of Infusion Device into Right Basilic Vein, Percutaneous Approach (ICD-10-PCS; 2021-05-16)
PROC: B54MZZA Ultrasonography of Right Upper Extremity Veins, Guidance (ICD-10-PCS; 2021-05-16)
PROC: 5A1D70Z Performance of Urinary Filtration, Intermittent, Less than 6 Hours Per Day (ICD-10-PCS; 2021-05-16)
PROC: 5A1D70Z Performance of Urinary Filtration, Intermittent, Less than 6 Hours Per Day (ICD-10-PCS; 2021-05-18)
DX: A41.51 Sepsis due to Escherichia coli [E. coli] (principal); R65.21 Severe sepsis with septic shock; N18.6 End stage renal disease; I50.43 Acute on chronic combined systolic (congestive) and diastolic (congestive) heart failure; I13.2 Hypertensive heart and chronic kidney disease with heart failure and with stage 5 chronic kidney disease, or end stage renal disease; A04.71 Enterocolitis due to Clostridium difficile, recurrent; I42.0 Dilated cardiomyopathy; J96.10 Chronic respiratory failure, unspecified whether with hypoxia or hypercapnia; M35.1 Other overlap syndromes; Q44.6 Cystic disease of liver; Q61.3 Polycystic kidney, unspecified; Z66 Do not resuscitate; Z20.822 Contact with and (suspected) exposure to COVID-19; D69.6 Thrombocytopenia, unspecified; M10.9 Gout, unspecified; D63.8 Anemia in other chronic diseases classified elsewhere; E03.9 Hypothyroidism, unspecified; E11.22 Type 2 diabetes mellitus with diabetic chronic kidney disease; E78.5 Hyperlipidemia, unspecified; F32.A Depression, unspecified; I25.10 Atherosclerotic heart disease of native coronary artery without angina pectoris; K43.2 Incisional hernia without obstruction or gangrene; J44.9 Chronic obstructive pulmonary disease, unspecified; R16.2 Hepatomegaly with splenomegaly, not elsewhere classified; R53.81 Other malaise; Z82.49 Family history of ischemic heart disease and other diseases of the circulatory system; Z99.2 Dependence on renal dialysis; Z83.3 Family history of diabetes mellitus; Z86.79 Personal history of other diseases of the circulatory system; Z90.49 Acquired absence of other specified parts of digestive tract; Z93.3 Colostomy status; Z79.899 Other long term (current) drug therapy
CPT/HCPCS: 36415; 36556; 71045; 74022; 74176; 80048; 80053; 80061; 80202; 80320; 82565; 82728; 82962; 83036; 83615; 83735; 83880; 84100; 84132; 84443; 84484; 84550; 85025; 85379; 85610; 85730; 87040; 87077; 87186; 87340; 87426; 87493; 90935; 93005; 93306; 93312; 94640; 96361; 96365; 96367; 97116; 97163; 97530; 99291; G0378; J1335; J2250; J2405; J3490

== ENCOUNTER 2022-03-16 19:56 | Emergency (ER) | payer OTHER ==
[~2022-03-16] VITALS: Ht 177.8 cm; Wt 90.9 kg
[~2022-03-16 19:56] MED LIST changes: +ALLO100T PO; -ALLO300T2 PO; -ATEN-60 PO; +CARV3.1240 PO
[2022-03-16 20:12] VITALS: BP 0/0
== END 2022-03-16 20:03 ==
LOC: EDBD 19:56 → ER 19:56
DX: I46.9 Cardiac arrest, cause unspecified (principal); I13.2 Hypertensive heart and chronic kidney disease with heart failure and with stage 5 chronic kidney disease, or end stage renal disease; E11.22 Type 2 diabetes mellitus with diabetic chronic kidney disease; N18.6 End stage renal disease; I50.9 Heart failure, unspecified; J45.909 Unspecified asthma, uncomplicated; I25.2 Old myocardial infarction
CPT/HCPCS: 31500; 92950; 99291